=== PATIENT | male | born 1960 | race Two or more races ===

== ENCOUNTER 2021-09-03 10:19 | Emergency (ER) | payer OTHER ==
[~2021-09-03] VITALS: Ht 170.2 cm; Wt 81.6 kg
[2021-09-03 11:38] VITALS: BP 155/89
== END 2021-09-03 12:43 | disposition home or self-care (01) ==
LOC: ER 10:19
DX: S61.232D Puncture wound without foreign body of right middle finger without damage to nail, subsequent encounter (principal); X58.XXXD Exposure to other specified factors, subsequent encounter

== ENCOUNTER 2021-09-10 18:19 | Emergency (ER) | payer OTHER ==
[2021-09-10 20:06] VITALS: BP 168/92
[2021-09-10] MEDS ORDERED: NEOMYCIN-BACITRACIN-POLYM UNITDOSE PKG TOP OINT TOP ONE (20:15)
[2021-09-10] MEDS ORDERED: AMOX-277 PO (20:33)
== END 2021-09-10 20:41 | disposition home or self-care (01) ==
LOC: ER 18:19
DX: L03.114 Cellulitis of left upper limb (principal)